=== PATIENT | male | born 1930 | race Caucasian/White ===

== ENCOUNTER 2019-01-29 15:32 | Emergency (ER) | payer OTHER ==
[~2019-01-29] VITALS: Ht 175.3 cm; Wt 79.8 kg
--- NOTE | 2019-01-29 16:09 | NUR ---
PATIENT BIB PD FOR OTB. C/O RLE PAIN AND SWELLING. ON ROOM AIR, BREATHING EVENLY AND UNLABORED. KEPT COMFORTABLE, WILL CONTINUE TO MONITOR ACCORDINGLY.
[2019-01-29 16:32] VITALS: BP 119/65
--- NOTE | 2019-01-29 16:33 | NUR ---
patient dc in custody in no apparent distress
== END 2019-01-29 16:33 ==
LOC: ER 15:36
DX: R60.0 Localized edema (principal); I10 Essential (primary) hypertension